=== PATIENT | male | born 1965 | race Two or more races ===

== ENCOUNTER 2017-08-31 22:57 | Emergency (ER) | payer OTHER ==
[~2017-08-31] VITALS: Ht 180.3 cm; Wt 90.7 kg
--- NOTE | 2017-08-31 23:07 | NUR ---
PT TO ER BED 8. PT BIBRA W/[employer];PT IN CUSTODY. PT C/O ABD PAIN, DENIES N/V/D. PT PLACED ON CELLULAR PHONE REPAIRER. VSS/RESP EVEN UNLABORED/NAD NOTED/SKIN WARM AND DRY/AOX4. AWAITING MD PASTRANA.
[2017-08-31] MEDS ORDERED: LORAZEPAM 1 MG TABLET ONE (23:15)
[2017-08-31] MEDS ORDERED: MAG HYDROX/AL HYDROX/SIMETH 30 ML UDC ONE (23:15)
[2017-08-31] MEDS ORDERED: LIDOCAINE VISCOUS 2% UD 15 ML UDC ONE (23:15)
--- NOTE | 2017-08-31 23:18 | NUR ---
[facility] AT BEDSIDE FOR DRAW.
--- NOTE | 2017-08-31 23:21 | NUR ---
MEDICATED PER MD ORDERS.
[2017-08-31] MEDS ORDERED: LORAZEPAM 1 MG TABLET PO ONE (23:30)
[2017-08-31] MEDS ORDERED: MAG HYDROX/AL HYDROX/SIMETH 30 ML UDC PO ONE (23:30)
[2017-08-31] MEDS ORDERED: LIDOCAINE VISCOUS 2% UD 15 ML UDC MM ONE (23:30)
[2017-08-31 23:32] LABS: BASOPHILS # (AUTO) 0.1 /CMM (0.0-0.2); BASOPHILS % (AUTO) 0.8 % (0.0-2.0); EOSINOPHILS # (AUTO) 0.1 /CMM (0.0-0.7); EOSINOPHILS % (AUTO) 1.1 % (0.0-6.0); HEMATOCRIT 46 % (39-51); HEMOGLOBIN 15.6 g/dL (13.5-17.5); LYMPHOCYTES # (AUTO) 1.5 /CMM (0.8-4.8); LYMPHOCYTES % (AUTO) 14.4 % (20.0-44.0); MEAN CORPUSCULAR HEMOGLOBIN 31 PG (26.0-33.0); MEAN CORPUSCULAR HGB CONC 34 g/dl (31.0-36.0); MEAN CORPUSCULAR VOLUME 89 fL (80-96); MONOCYTES # (AUTO) 0.6 /CMM (0.1-1.30); MONOCYTES % (AUTO) 5.6 % (2.0-12.0); NEUTROPHILS % (AUTO) 78.1 % (43.0-81.0); PLATELET COUNT (AUTO) 262 /CMM (150-450); RDW COEFFICIENT OF VARIATION 14.2 (11.5-15.0); RED BLOOD CELL COUNT(AUTO) 5.13 MIL/uL (4.5-6.0); WHITE BLOOD COUNT (AUTO) 10.2 K/uL (4.3-11.0)
[2017-08-31 23:43] LABS: CALCIUM, SERUM 8.9 mg/dL (8.5-10.1); CREATININE 1.1 mg/dL (0.6-1.3); POTASSIUM 4.2 mmol/L (3.5-5.1)
[2017-08-31 23:51] LABS: ALBUMIN 4.2 g/dL (3.4-5.0); BILIRUBIN,DIRECT 0.1 mg/dL (0.0-0.2); BILIRUBIN,TOTAL 0.7 mg/dL (0.2-1.0); TOTAL PROTEIN, SERUM 7.3 g/dL (6.4-8.2)
--- NOTE | 2017-09-01 00:53 | NUR ---
[employer] REMAINS AT BEDSIDE. PT VSS.
--- NOTE | 2017-09-01 01:40 | NUR ---
PT OK TO DISHCARGE PER DR SÁNCHEZ. IV removed. Catheter intact and site benign. Pressure and 4x4 applied to site. No bleeding noted.Patient discharged in custody of [employer] in stable condition. Written and verbal after care instructions given. Patient verbalizes understanding of instruction.Patient is awake and alert to self, day, and place. PT ambulatory with a steady gait
[2017-09-01 01:41] VITALS: BP 115/68
== END 2017-09-01 01:42 | disposition home or self-care (01) ==
LOC: ER 22:58
DX: R10.10 Upper abdominal pain, unspecified (principal); F41.9 Anxiety disorder, unspecified; G89.29 Other chronic pain; K85.90 Acute pancreatitis without necrosis or infection, unspecified; Z88.0 Allergy status to penicillin
CPT/HCPCS: 36415; 80048; 80076; 83690; 85025; 99284; A4606; Z7610

== ENCOUNTER 2017-09-23 16:46 | Emergency (ER) | payer OTHER ==
[~2017-09-23] VITALS: Ht 185.4 cm; Wt 86.2 kg
[2017-09-23 16:46] VITALS: BP 122/65
--- NOTE | 2017-09-23 17:16 | NUR ---
ROMY CASTILLO AT BEDSIDE FOR EVAL.
--- NOTE | 2017-09-23 17:24 | NUR ---
PT TO RADIOLOGY FOR HEAD CT SCAN VIA [facility].
--- NOTE | 2017-09-23 18:26 | NUR ---
PT LEFT IN CUSTODY OF [facility] in stable condition. Written and verbal after care instructions given. Patient verbalizes understanding of instruction. PT AMBULATED OUT WITH A STEADY GAIT. VSS.
== END 2017-09-23 18:29 ==
LOC: ER 16:47
DX: S09.8XXA Other specified injuries of head, initial encounter (principal); Z88.0 Allergy status to penicillin; W22.8XXA Striking against or struck by other objects, initial encounter; Y93.89 Activity, other specified; Y92.89 Other specified places as the place of occurrence of the external cause; Y99.8 Other external cause status
CPT/HCPCS: 70450; 99284; A4606; Z7610